=== PATIENT | male | born 2000 | race Caucasian/White ===

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

== ENCOUNTER 2019-09-30 13:53 | Emergency (ER) | payer BC ==
[2019-09-30 14:28] VITALS: BP 141/85
--- NOTE | 2019-09-30 15:10 | ED ---
Skin Complaint - HPI Summary HPI Summary: Pt. is a 19 y.o male who presents to the ER for redness and warmth to his right upper leg. Pt. states last night he noticed a small bump to right medial upper leg. He squeeze area and today redness and pain increased. Pt. denies fever, chills, N/V. No past medical hx. Pt. states his mother was concerned he had a tick bite but pt. does not have pets and has not been in the [place] recently. Sxs are mild in severity. Touching area makes sxs worse. Rest makes sxs better. - History of Current Complaint Chief Complaint: EDRashSkinAbscess Time Seen by Provider: 09/30/19 13:59 Stated Complaint: POSS TICK PER PT Hx Obtained From: Patient Pain Intensity: 1 Pain Scale Used: 0-10 Numeric - Allergy/Home Medications Allergies/Adverse Reactions: Allergies Allergy/AdvReac Type Severity Reaction Status Date / Time No Known Allergies Allergy Verified 09/30/19 13:57 PMH/Surg Hx/FS Hx/Imm Hx Previously Healthy: Yes Sensory History: Denies: Hx Legally Blind, Hx Deafness Opthamlomology History: Denies: Hx Legally Blind - Surgical History Surgery Procedure, Year, and Place: none Infectious Disease History: No Infectious Disease History: Denies: Traveled Outside the [place] in Last 30 Days - Family History Known Family History: Positive: Unknown - Pt is intoxicated and is unable to recall family history, Non-Contributory - Social History Occupation: Student Lives: With Family Alcohol Use: Weekly Substance Use Type: Reports: None Smoking Status (MU): Never Smoked Tobacco Review of Systems Constitutional: Negative Negative: Fever Positive: Other - Redness to right upper leg All Other Systems Reviewed And Are Negative: Yes Physical Exam Triage Information Reviewed: Yes Vital Signs On Initial Exam: Initial Vitals Temp Pulse Resp BP Pulse Ox 98.7 F 105 19 167/92 99 09/30/19 13:55 09/30/19 13:55 09/30/19 13:55 09/30/19 13:55 09/30/19 13:55 Vital Signs Reviewed: Yes Appearance: Positive: Well-Appearing - Pt. sitting on bed in NAD. Skin: Positive: Warm, Dry Head/Face: Positive: Normal Head/Face Inspection Eyes: Positive: Normal, EOMI Neck: Positive: Supple Musculoskeletal: Positive: Other - Large, roughly 12cm in diameter area of erythema and warmth noted to right medial thigh. Small scab in the center. Area is indurated without fluctuance. Neurological: Positive: Normal, CN Intact II-III Psychiatric: Positive: Affect/Mood Appropriate Procedures - Sedation Patient Received Moderate/Deep Sedation with Procedure: No Diagnostics - Vital Signs Vital Signs Temp Pulse Resp BP Pulse Ox 09/30/19 14:27 97.8 F 99 21 141/85 99 09/30/19 13:55 98.7 F 105 19 167/92 99 - Laboratory Lab Statement: Any lab studies that have been ordered have been reviewed, and results considered in the medical decision making process. Course/Dx - Course Course Of Treatment: Pt. with cellilitis to right upper leg. Likely from ingrown hair. No evidence on exam or history for tick bite. Will cover with keflex as well as bactrim for MRSA. Advised warm compresses. To f.u with [facility] for recheck in 3 days. Tylenol or motrin for pain as directed. Will return to er for increased redness, swelling, fever, or if concerned. pt. understands and agrees with plan. - Differential Diagnoses - Skin Complaint Differential Diagnoses: Abscess, Cellulitis, Eczema, Tinea - Diagnoses Provider Diagnoses: Cellulitis Discharge ED - Sign-Out/Discharge Documenting (check all that apply): Patient Departure - Discharge Plan Condition: Good Disposition: HOME Prescriptions: Cephalexin CAP* [Keflex CAP*] 500 mg PO BID #20 cap Sulfamethox/Trimethoprim DS* [Bactrim DS 800/160 TAB*] 1 tab PO BID #20 tab Patient Education Materials: Cellulitis (ED) Referrals: [facility] [Primary Care Provider] - Additional Instructions: Follow up with [facility] for recheck in 3 days Take antibiotics as directed Apply warm compress 3x a day Tylenol or Motrin for pain as directed Return to ER for increased redness, swelling, pain, fever, vomiting or if concerned - Billing Disposition and Condition Condition: GOOD Disposition: Home
== END 2019-09-30 14:27 | disposition home or self-care (01) ==
LOC: ED 13:53
DX: L03.115 Cellulitis of right lower limb (principal)
CPT/HCPCS: 99282